=== PATIENT | male | born 1955 | race Hispanic/Latino ===

== ENCOUNTER 2025-10-15 22:38 | Emergency (ER) | payer OTHER ==
[~2025-10-15] VITALS: Ht 172.7 cm; Wt 68.0 kg
[~2025-10-15 22:38] MED LIST: ATOR10TA69 PO; METF-444 PO; METF-446 PO; ROSU5TAB51 PO
--- NOTE | 2025-10-15 22:44 | ERN ---
General Chief Complaint: Mechanical Fall Stated Complaint: FALL Time Seen by MD: 22:40 Source: patient History of Present Illness Initial Comments PATIENT IS A 70-YEAR-OLD MALE COMING IN TO BE EVALUATED FOR WHAT HE STATES IT WAS A FALL. PATIENT STATES HE FELL DOWN LANDED ON HIS GLUTEAL REGION IN HIS COMPLAINING OF PAIN IN HIS PERIRECTAL AREA ALONG WITH THAT HE STATES HE HAS A PAIN IN HIS LEFT SHOULDER. Allergies: Coded Allergies: No Known Allergies (Unverified Allergy, Unknown, 09/14/25) Home Meds Reported Medications Metformin HCl (Metformin HCl) 1,000 Mg Tablet, 1000 MG PO AM, TAB 09/22/25 Rosuvastatin Calcium (Rosuvastatin Calcium) 5 Mg Tablet, 1 MG PO AM, TAB 09/22/25 Metformin HCl (Metformin HCl) 500 Mg Tablet, 500 MG PO BIDMEALS, TAB 09/16/25 Atorvastatin Calcium (Atorvastatin Calcium) 10 Mg Tablet, 10 MG PO DAILY, TAB 09/16/25 Past Medical History Past Medical History: Diabetes-Type II Past Surgical History: Other ROS Dictation CONSTITUTIONAL: NO CHILLS, NO FEVER, NO WEAKNESS, NO DIAPHORESIS, NO MALAISE. HEAD/FACE: NO SIGNS OF TRAUMA. EENT: NO EYE PAIN, NO BLURRED VISION, NO TEARING, NO DOUBLE VISION, NO EAR PAIN, NO EAR DISCHARGE, NO NOSE PAIN, NO NASAL CONGESTION, NO THROAT PAIN, NO THROAT SWELLING, NO MOUTH PAIN. RESPIRATORY: NO COUGH, NO ORTHOPNEA, NO SOB, NO STRIDOR, NO WHEEZING. CARDIOVASCULAR: NO CHEST PAIN, NO EDEMA, NO PALPITATIONS, NO SYNCOPE. GASTROINTESTINAL/ABDOMINAL: NO ABDOMINAL PAIN, NO CONSTIPATION, NO DIARRHEA, NO NAUSEA, NO VOMITING. GENITOURINARY: NO ABNORMAL DISCHARGE, NO DYSURIA, NO FREQUENT URINATION, NO HEMATURIA. NO COMPLAINTS OF PAIN IN THE GENITALS. MUSCULOSKELETAL: NO BACK PAIN, NO GOUT, NO JOINT PAIN, NO JOINT SWELLING, MUSCLE PAIN, NO MUSCLE STIFFNESS, NO NECK PAIN. INTEGUMENTARY: NO CHANGE IN COLOR, NO CHANGE IN HAIR/NAILS, NO DRYNESS, NO LESION, NO LUMPS, NO RASH. NEUROLOGICAL/PSYCH: NO ANXIETY, NOT DEPRESSED, NO EMOTIONAL PROBLEM, NO HEADACHE, NO NUMBNESS, NO PRE-EXISTING DEFICIT, NO HISTORY OF SEIZURES, NO TREMORS, NO WEAKNESS. HEMATOLOGIC/LYMPHATIC: NOT ANEMIC, NO HISTORY OF BLOOD CLOTS, NO APPARENT BLEE DING, NO BRUISING, GLANDS NOT SWOLLEN. ALL SYSTEMS NEGATIVE, EXCEPT NOTED. Physical Exam Physical Exam Dictation VITAL SIGNS: REVIEWED. GENERAL APPEARANCE: ALERT, ORIENTED X3, NO ACUTE DISTRESS, OBESE. HEAD AND FACE: NON-TRAUMATIC. EYES: PERRL, PINK CONJUNCTIVAS, EYELID NO TRAUMA, ANTERIOR CHAMBER CLEAR. EARS: PINNAS INTACT AND NO SIGNS OF TRAUMA OR ERYTHEMA. EAR CANALS CLEAR AND NO DISCHARGE. TMS NO ERYTHEMA. NOSE: NO DISCHARGE, NO BLEEDING. OROPHARYNX: MOUTH NORMAL, TEETH NO CARIES, TONGUE PINK. PHARYNX CLEAR, NO ERYTHEMA. TONSILS NO EXUDATES, NO ABSCESSES NOTED. MUCOUS MEMBRANE MOIST. NECK: SUPPLE, NON-TENDER, NO THYROMEGALY, NO MASSES, NO JVD, NO BRUITS. BREAST: DEFERRED. CHEST: NO TENDERNESS, NO CREPITUS, NO PARADOXICAL MOVEMENT, NO RETRACTIONS. LUNGS: CLEAR, WELL-VENTILATED, SYMMETRIC, NO RALES, NO WHEEZING, NO RHONCHI, NO STRIDOR, GOOD BREATH SOUNDS BILATERALLY. HEART: REGULAR RATE, REGULAR RHYTHM, NO MURMUR, NO GALLOPS. VASCULAR: NO PERIPHERAL EDEMA. ABDOMEN: SOFT, POSITIVE BOWEL SOUNDS, NONDISTENDED, NO GUARDING, NONTENDER, NO REBOUND, NO MASSES NO HEPATOMEGALY, NO SPLENOMEGALY, NO CR'S SIGN, NO HERNIAS. RECTAL: DEFERRED. GENITAL: DEFERRED. NEUROLOGICAL: NORMAL SPEECH, GROSS MOTOR FUNCTION INTACT, GROSS SENSORY FUNCTION INTACT. MUSCULOSKELETAL: NECK NONTENDER, FULL RANGE OF MOTION, BACK NONTENDER, FULL RANGE OF MOTION. COCCYX DISCOMFORT ON PALPATION EXTREMITIES: NONTENDER, FULL RANGE OF MOTION. LEFT SHOULDER TENDERNESS ON PALPATION, SKIN: COLOR PINK, DRY, NO TURGOR, NO RASH, NO LACERATIONS, NO ABRASIONS, NO CONTUSIONS. LYMPHATICS: DEFERRED. Results Laboratory and Microbiology Labs Reviewed?: Yes MDM MDM: DIFFERENTIAL DIAGNOSIS: FALL, MECHANICAL FALL, COCCYX PAIN, LEFT SHOULDER STRAIN, RATIONALE: TESTS CONSIDERED AND ORDERED SECONDARY TO SHARED DECISION MAKING INCLUDE: PREVIOUS OUTSIDE RECORDS REVIEWED: OLD ER VISITS. RISK OF COMPLICATION AND/OR MORBIDITY OR MORTALITY OF PATIENT MANAGEMENT: NONE MEDICATIONS-PER MEDICATION RECONCILIATION NEED FOR HOSPITALIZATION: PATIENT DOES NOT MEET CRITERIA FOR HOSPITALIZATION. NEED FOR EMERGENCY MAJOR/MINOR SURGERY: NO PATIENT IS A 70-YEAR-OLD MALE COMING IN COMPLAINING OF THE PHONE. HE STATES THAT HE HAS A PAIN IN HIS GLUTEAL REGION X-RAY DISCLOSE A POSSIBLE ANTERIOR DISLOCATION OF THE DISTAL COCCYX, LEFT SHOULDER WITHIN NORMAL LIMITS. PATIENT WILL BE DISCHARGED IN STABLE CONDITION WITH A DIAGNOSIS OF COCCYX PAIN. ED Course Orders Procedure Category Date Status Time Shoulder Comp 2+Vws Lt RAD 10/15/25 Taken 22:41 Sacrum/Coccyx 2+Vws RAD 10/15/25 Taken 22:41 Vital Signs Date Time Temp Pulse Resp B/P (MAP) Pulse Ox O2 Delivery O2 Flow Rate FiO2 10/15/25 22:41 98.1 82 16 125/79 98 Room Air 0 DX & DISP Disposition: Discharge Departure Impression: Primary Impression: Coccyx disorder Additional Impressions: Coccyx contusion, Coccyx sprain Condition: Stable Scripts Naproxen (Naproxen) 375 Mg Tablet. 375 MG PO BID for 7 Days, #14 TAB Prov: ESTEBAN CHAMBERLAIN MD 10/15/25 Additional Instructions: FOLLOW-UP WITH PRIMARY CARE PROVIDER IN 1 TO 2 DAYS. TAKE MEDICATIONS DIRECTED HERE IN THE EMERGENCY ROOM. OKAY TO CONTINUE HOME MEDICATIONS UNLESS OTHERWISE DISCUSSED DURING YOUR VISIT IN THE EMERGENCY ROOM TODAY. RETURN TO YOUR NEAREST EMERGENCY ROOM IF SYMPTOMS WORSEN OR IF THERE IS NO IMPROVEMENT. CALL 911 IF YOU NEED IMMEDIATE ASSISTANCE. TAKE TYLENOL [id number] NEEDED AND IF NO CONTRAINDICATIONS ARE PRESENT. INCREASE ORAL HYDRATION. A WOUND CULTURE OR URINE CULTURE WAS ORDERED HERE IN THE EMERGENCY ROOM DEPARTMENT PLEASE FOLLOW-UP WITH PRIMARY CARE PROVIDER AND ADVISE THEM TO GET REPORTS FROM OUR FACILITY. IF YOU HAD ANY GILMER WRAP/SPLINTS THAT WERE APPLIED HERE, PLEASE DO NOT REMOVE THEM UNTIL YOU SEE YOUR PRIMARY CARE OR SPECIALTY. REFERRALS: Referrals: SELF,REFERRAL (PCP) COSMO MEZA MD Time of Disposition: 23:28 ESTEBAN CHAMBERLAIN MD Oct 15, 2025 22:44
[2025-10-15] MEDS ORDERED: NAPR-1505 PO (23:29)
--- NOTE | 2025-10-15 23:42 | HMCIMG ---
EXAM: CR left Shoulder, 2 views. CLINICAL HISTORY: Fall. COMPARISON: None provided. FINDINGS: BONES: No acute fracture or aggressively appearing osseous lesion. JOINTS: No dislocation. Mild acromioclavicular and glenohumeral osteoarthritis. SOFT TISSUES: The soft tissues are unremarkable. IMPRESSION: No acute abnormality was evident on examination of the left shoulder. No acute fracture or dislocation. /[place]
--- NOTE | 2025-10-15 23:46 | HMCIMG ---
EXAM: CR Sacrum and Coccyx, 3 Views. CLINICAL HISTORY: Fall. COMPARISON: None provided. FINDINGS: BONES: No acute fracture or aggressively appearing osseous lesion. Bony alignment is anatomic. SOFT TISSUES: The soft tissues are unremarkable. IMPRESSION: No acute osseous abnormality. /[place]
--- NOTE | 2025-10-16 00:32 | NUR ---
PATIENT DOES NOT HAVE A RIDE HOME, CLOSEST FAMILY MEMBER IS IN [place]. NO NEIGHBOR/FRIENDS/FAMILY TO HELP. PATIENT REPORTS THAT HE DOES NOT HAVE A PROVIDER EITHER. 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
--- NOTE | 2025-10-16 01:15 | NUR ---
patient taken to bathroom
[2025-10-16 02:23] VITALS: BP 128/78; PULSE 82; RESP 16; TEMP 98; O2SAT 99
--- NOTE | 2025-10-16 02:24 | NUR ---
pending ems to transport home
--- NOTE | 2025-10-16 02:46 | NUR ---
ems here to transport patient home
== END 2025-10-16 02:51 | disposition home or self-care (01) ==
LOC: EDH 22:38
DX: S33.8XXA Sprain of other parts of lumbar spine and pelvis, initial encounter (principal); M25.512 Pain in left shoulder; E11.9 Type 2 diabetes mellitus without complications; Z79.899 Other long term (current) drug therapy; W18.39XA Other fall on same level, initial encounter; Y93.89 Activity, other specified; Y92.89 Other specified places as the place of occurrence of the external cause; Y99.8 Other external cause status
CPT/HCPCS: 72220; 73030; 99284